=== PATIENT | female | born 1935 | race Caucasian/White ===

== ENCOUNTER 2017-08-10 10:15 | Outpatient (CLI) | payer MEDICARE, BC ==
--- NOTE | 2017-08-10 13:17 | ULT ---
RENAL ULTRASOUND: 08/10/2017 HISTORY: Chronic renal disease. TECHNIQUE: Multiple longitudinal and transverse images of the kidneys and bladder are obtained using a Multi-Her tz curvilinear transducer. FINDINGS: Real-time and color-flow images demonstrate both kidneys to be of normal contour, axis, and size. Th e right kidney measures 10.7 and the left kidney 9.6 cm from pole to pole. There is a large cyst in the upper to mid pole of the right kidney, measuring 4.5 x 3.4 x 4.3 cm, while there is a smaller cys t in the lower pole of the left kidney, measuring 1.0 x 1.2 x 1.0 cm. The right upper pole cyst or cystic lesion appears to have some area of wall calcification. This is not a simple cyst. The bladder is unremarkable. IMPRESSION: Complex cyst or cystic lesion in the upper pole of the right kidney. Correlate with CT with and without contrast for further characterization, if indicated. POS: [facility]
== END 2017-08-10 10:16 | disposition home or self-care (01) ==
LOC: ULT 10:15
PROVIDERS: ATTEND Internal Medicine Nephrology
DX: N18.3 Chronic kidney disease, stage 3 (moderate) (principal); N28.9 Disorder of kidney and ureter, unspecified
CPT/HCPCS: 76770

== ENCOUNTER 2017-11-16 10:20 | Outpatient (CLI) | payer MEDICARE, BC | END 2017-11-16 10:21 | disposition home or self-care (01) | LOC: BICMAMMO 10:20 | PROVIDERS: ATTEND Internal Medicine Hematology & Oncology | DX: Z12.31 Encounter for screening mammogram for malignant neoplasm of breast (principal); Z85.3 Personal history of malignant neoplasm of breast; Z80.3 Family history of malignant neoplasm of breast | CPT/HCPCS: 77063; 77067 ==

== ENCOUNTER 2018-06-20 10:56 | Outpatient (CLI) | payer MEDICARE, BC ==
--- NOTE | 2018-06-20 13:08 | ULT ---
RENAL ULTRASOUND: HISTORY: Followup of renal cyst. COMPARISON: 08/10/2017 examination. FINDINGS: Real-time imaging of the right and left kidneys were performed. The right kidney measures 10.1 cm an d the left kidney 10.4 cm in size. Cortical thinning of both kidneys is noted. Benign-appearing 1.4 cm left renal cyst is present. A more complex parapelvic cyst involving the right kidney is again d emonstrated. It is 3.7 cm in size. It appears similar to the previous exam. The bladder is incompletely extended at the time of this exam. IMPRESSION: Stable appearance of a complex right renal parapelvic cyst. POS: [facility]
== END 2018-06-20 10:57 | disposition home or self-care (01) ==
LOC: BICULT 10:56
PROVIDERS: ATTEND Internal Medicine Nephrology
DX: N28.1 Cyst of kidney, acquired (principal)
CPT/HCPCS: 76770

== ENCOUNTER 2018-08-11 12:07 | Outpatient (CLI) | payer MEDICARE, BC ==
[~2018-08-11 12:07] MED LIST: Gadobenate Dimeglumine 529 MG/1 ML (20ML VIAL) ONE
--- NOTE | 2018-08-11 17:16 | MRI ---
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 TECHNIQUE: Multiple sequences obtained in axial, sagittal, and coronal planes; pre and post IV injection of gado linium-based contrast agent: 6 mL, half dose, of Multihance (decreased GFR of 36). In addition to sta ndard whole brain sequences, additional thin slices were obtained through the paths of the VII crania l nerves. FINDINGS: There is a moderate to large left mastoid effusion involving the majority of the left mastoid air linda ls. A heavily T2 weighted thin slice axial sequence was not performed through the posterior fossa, an d therefore the morphology of the 7th-8th nerve complexes in the cisterns and IAC's, can not evaluate d in detail. However, there is no abnormal enhancement involving the cisternal, canalicular, geniculate, tympanic, or mastoid, segments of either the left or right facial nerve, with no evidence of neoplastic tumor mass. There is no abnormal enhancement or mass in the brainstem. There are mild to moderate chronic ischemic white matter changes in the west radiata and centrum se miovale, including periventricular white matter. There is a small old white matter lacunar infarction involving the right west radiata/centrum semi ovale junction. There is an old lacunar infarction involving the left caudate head and adjacent portion of anterior l eft basal ganglia. There are at least mild chronic ischemic white matter changes involving the nemo. There are multiple old small lacunar infarctions in the bilateral cerebellar hemispheres. There is no abnormal intra-axial enhancement or mass. No mass effect, midline shift or extra-axial fluid collect ion. There is diffuse brain parenchymal volume loss, not unusual for age 83 years. There is no obstru ctive hydrocephalus. No mass effect or midline shift. No extra-axial fluid collection. There is no abnormal enhancement or mass in the left malar and premaxillary soft tissues. No evidence of perineural spread of tumor in the pterygopalatine fossa or pterygomaxillary fissure. There is an approximately 1.5 x 1.5 x 1.5 cm solid mass with heterogeneous moderate enhancement in th e preauricular soft tissues, which is T1, T2 and FLAIR isointense to muscle. There is asymmetrically slightly increased enhancement in the superficial lobe of the left parotid gland compared to the righ t IMPRESSION: 1) A 1.5 cm enhancing neoplastic tumor mass in the left preauricular soft tissues. It may be originat ing from the far anterior superior tissues of the superficial lobe of the left gland. 2) slightly increased enhancement in the superficial lobe of the left parotid gland compared to the r ight, raising the possibility that branches of the left facial nerve could be affected by this. Recom mend otolaryngology consultation. 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 Code T JN R POS: [facility]
== END 2018-08-11 12:08 | disposition home or self-care (01) ==
LOC: BICMRI 12:07
PROVIDERS: ATTEND Ophthalmology
DX: G51.8 Other disorders of facial nerve (principal); H61.102 Unspecified noninfective disorders of pinna, left ear; Z86.73 Personal history of transient ischemic attack (TIA), and cerebral infarction without residual deficits
CPT/HCPCS: 70553; 82565; A9579

== ENCOUNTER 2018-10-26 10:32 | Day surgery (SDC) | payer MEDICARE, BC ==
[2018-10-25 14:03] VITALS: BMI 26.5
[2018-10-26 11:06] LABS: #Basophils 0.1 thou/uL (0.0-0.2); #Eosinphils 0.3 thou/uL (0.0-0.7); #Monocytes 0.4 thou/uL (0.11-0.59); %Eosinophils 5.3 % (0.0-10.0); %Lymphocytes 17.1 % (21.0-51.0); %Monocytes 7.3 % (0.0-10.0); %Neutrophils 69.3 % (42.0-75.0); Hemoglobin 13.4 g/dL (12.0-16.0); Mean Corpuscular HGB CONC 32.1 g/dL (32.0-36.0); Mean Corpuscular Hemoglobin 33.1 pg (27.0-31.0); Mean Platelet Volume 7.4 fL (7.4-10.4); Platelet Count 161 thou/uL (130-400); RBC Distribution Width 12.5 % (11.5-14.5); Red Blood Cell (RBC) Count 4.05 mill/uL (4.20-5.40); White Blood Cell (WBC) Count 5.8 thou/uL (4.8-10.8)
[2018-10-26 11:29] LABS: Anion Gap 13 mmol/L (10-20); BUN (Urea Nitrogen) 32 mg/dL (9.8-20.1); Calc. Creatinine Clearance 32 mL/min (70-130); Calcium 10.7 mg/dL (7.8-10.44); Carbon Dioxide 26 mmol/L (23-31); Chloride 103 mmol/L (98-107); Estimated GFR-MDRD 38; Glucose 88 mg/dL (83-110); Potassium 4.4 mmol/L (3.5-5.1); Sodium 138 mmol/L (136-145)
[2018-10-26] MEDS ORDERED: Bacitracin Zinc Ointment 30 gm TUBE ONE (11:31)
[2018-10-26] MEDS ORDERED: Lidocaine 1% w/Epinephrine 1:100K 20 ML VIAL ONE (11:31)
[2018-10-26] MEDS ORDERED: Fentanyl 100 MCG/2 ML VIAL ONE (11:46)
[2018-10-26] MEDS ORDERED: Hydrocodone-Acetamin 15 ML UDCUP ONE (14:55)
[2018-10-26] MEDS ORDERED: Ondansetron PF 4 MG/2 ML Vial ONE (15:01)
[2018-10-26] MEDS ORDERED: Lidocaine 1% PF 5 ML VIAL ONE (15:01)
[2018-10-26] MEDS ORDERED: ePHEDrine 50 MG/ML VIAL ONE (15:01)
[2018-10-26] MEDS ORDERED: Glycopyrrolate 0.2 MG/ML 5 ML SYRINGE ONE (15:01)
[2018-10-26] MEDS ORDERED: PROPOFOL 200 MG/20 ML VIAL ONE (15:01)
[2018-10-26] MEDS ORDERED: Rocuronium Bromide 10 MG/ML (10ML VIAL) ONE (15:01)
[2018-10-26] MEDS ORDERED: Morphine 2 MG/ML SYRINGE ONE (16:13)
--- NOTE | 2018-10-27 10:10 | OP ---
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 PROCEDURE PERFORMED: Total parotidectomy with facial nerve sacrifice. ESTIMATED BLOOD LOSS: 50 mL. COMPLICATIONS: None. ANESTHESIA: GETA. DESCRIPTION OF PROCEDURE: The patient was taken to the operating room and placed supine on the table. General endotracheal anesthesia was obtained by the anesthesia staff. Tube was secured in the right lower lip. The shoulder roll was placed and the head was gently tilted, exposing the left parotid. Following this, 8 mL of 1% lidocaine with 1:100,000 epinephrine was injected into the anticipated incision, which would outline her previous left parotidectomy incision. Following this, incision was made using a 15 blade through skin, subcutaneous tissue. Fat up, fat down level was obtained as the skin was elevated over the parotid gland. Following this, inferiorly, the remnant of the parotid gland and scar area was from the sternocleidomastoid. Following this, dissection was carried down the tragal cartilage until the entire remnant of the superficial lobe scarring and deep lobe was transected. This included the main branch of the facial nerve at the level of the mastoid bone. Following this, the gland was then rotated anteriorly and dissection was carried off the deep facial muscles until the entire gland was removed. Within the gland, there was noted to be a 1-1/2 cm firm area. They appeared to have clear margins. The wound was then irrigated and the deep subcuticular layer was closed using Monocryl stitches and the skin was closed using Prolene stitches. A drain was placed. The patient tolerated the procedure well. Job ID: [id number]
== END 2018-10-26 17:11 | disposition home or self-care (01) ==
LOC: SDC 10:32
PROVIDERS: ATTEND Otolaryngology Plastic Surgery within the Head & Neck
PROC: 0CTC0ZZ Resection of Left Parotid Duct, Open Approach (ICD-10-PCS; principal; 2018-10-26)
PROC: 00BM0ZZ Excision of Facial Nerve, Open Approach (ICD-10-PCS; 2018-10-26)
DX: C07 Malignant neoplasm of parotid gland (principal); E78.00 Pure hypercholesterolemia, unspecified; I10 Essential (primary) hypertension; Z92.21 Personal history of antineoplastic chemotherapy; Z92.3 Personal history of irradiation; Z85.3 Personal history of malignant neoplasm of breast; Z86.718 Personal history of other venous thrombosis and embolism; Z79.82 Long term (current) use of aspirin; Z79.899 Other long term (current) drug therapy; Z91.040 Latex allergy status; Z91.048 Other nonmedicinal substance allergy status; Z98.890 Other specified postprocedural states
CPT/HCPCS: 36415; 80048; 85025; 88307; 93005; 93010; J2001; J2270; J2405; J2704; J3010; J3490

== ENCOUNTER 2018-11-22 12:47 | Outpatient (CLI) | payer MEDICARE, BC ==
--- NOTE | 2018-11-28 13:22 | MMO ---
Bilateral MAMMO Bilat Screen [facility]. CLINICAL HISTORY: Patient is 83 years old and is seen for screening. The patient has the following family history of breast cancer: sister, at age 40. The patient has a history of left Cyst Aspiration in 1986 - benign, left Excisional Biopsy in 2003 - benign and right Mastectomy in 2003 - malignant - 1. VIEWS: The views performed were: bilateral craniocaudal with tomosynthesis and bilateral mediolateral oblique with tomosynthesis. FILMS COMPARED: The present examination has been compared to prior imaging studies performed at [facility] on 12/06/2000, 12/14/2001, 12/18/2002, 12/25/2003, 12/27/2003, 11/17/2004, 07/08/2005, 12/17/2005, 09/14/2006, 10/04/2009, 10/06/2010, 09/10/2011, 09/12/2012, 10/05/2013, 11/07/2014, 11/11/2015, 11/12/2016 and 11/16/2017. MAMMOGRAM FINDINGS: The breast is heterogeneously dense, which could obscure a lesion on mammography. Finding 1: There are vascular calcifications seen in the left breast. Finding 2: There are benign appearing calcifications seen in the left breast. There are no suspicious masses, calcifications or areas of architectural distortion. IMPRESSION: THERE IS NO MAMMOGRAPHIC EVIDENCE OF MALIGNANCY. A ROUTINE FOLLOW-UP MAMMOGRAM IN 1 YEAR IS RECOMMENDED. THE RESULTS OF THIS EXAM WERE SENT TO THE PATIENT. ACR BI-RADS Category 2 - Benign finding MAMMOGRAPHY NOTE: 1. A negative mammogram report should not delay a biopsy if a dominant of clinically suspicious mass is present. 2. Approximately 10% to 15% of breast cancers are not detected by mammography. 3. Adenosis and dense breasts may obscure an underlying neoplasm.
== END 2018-11-22 12:48 | disposition home or self-care (01) ==
LOC: BICMAMMO 12:47
PROVIDERS: ATTEND Internal Medicine Hematology & Oncology
DX: Z12.31 Encounter for screening mammogram for malignant neoplasm of breast (principal); Z80.3 Family history of malignant neoplasm of breast; Z98.890 Other specified postprocedural states; Z90.11 Acquired absence of right breast and nipple
CPT/HCPCS: 77063; 77067

== ENCOUNTER 2018-12-02 08:24 | Outpatient (CLI) | payer MEDICARE, BC ==
--- NOTE | 2018-12-02 12:03 | PET ---
FRadionucleotide PET scan with CT attenuation correction HISTORY: Recurrent left parotid mucosal epidermoid neoplasm. Restaging. FINDINGS: Physiologic uptake of radiotracer is present throughout the enteric system and along each u rinary tract. Muscular uptake is noted along the left teres minor muscle without a focal mass. Increased activity associated with the left parotid region shows a maximum SUV of 3.9, slightly above the level where the mass was on the prior MRI exam. It is not a masslike focus of uptake, but rather a diffuse area of slightly increased activity. No other areas of increased radiotracer uptake are apparent. Nondiagnostic CT attenuation correction images show calcification within the arterial structures. Kevin cified granulomata within the lungs, mediastinum, and spleen. Degenerative changes lumbar spine. Righ t breast is surgically absent. Large right renal cyst is apparent with resultant defect on the PET im ages. IMPRESSION: Hypermetabolic activity associated with the left parotid bed is favored to be related to reactive post radiation changes. A hypermetabolic mass is no longer visible. No evidence of distant metastasis. Atherosclerosis.
== END 2018-12-02 08:25 | disposition home or self-care (01) ==
LOC: PET 08:24
PROVIDERS: ATTEND Radiology Radiation Oncology
DX: C07 Malignant neoplasm of parotid gland (principal); I70.90 Unspecified atherosclerosis; Z92.3 Personal history of irradiation
CPT/HCPCS: 78815; A9552

== ENCOUNTER 2019-09-12 12:21 | Outpatient (CLI) | payer MEDICARE, BC ==
--- NOTE | 2019-09-12 14:20 | MRI ---
MRI of the neck with and without contrast: 09/12/2019 HISTORY: Restaging of parotid neoplasm on the left TECHNIQUE: The planar multisequence MR imaging of the neck is obtained with and without contrast FINDINGS: The patient appears status post resection of the parotid gland on the left. There is a left mastoid effusion. Imaged portions of the paranasal sinuses and the right mastoid air cells appear grossly unremarkable. Midline sternotomy wires are present. The region of the submandibular glands appears grossly unremarkable bilaterally. The parotid gland on the right appears grossly unremarkable. There is a mass posterior to the mandible on the left just inferior to the level of the left mandibul ar condyle anterior to the inferior aspect of the left mastoid air cells, just inferior to the external auditory canal on the left. This mass appears new when compared to a brain MRI performed 08/11/2018. This lesion is slightly T2 hyperintense, demonstrates precontrast T1 isointensity and demonstrates postcontrast enhancement. This lesion measures approximately 1.3 x 1.8 x 1.9 cm. Given t he patient's history, this is suspicious for recurrent left parotid neoplasm. Motion artifact limits detailed assessment of the mucosal structures of the neck as well as of the vascular structure s. No discrete lymphadenopathy is noted. IMPRESSION: Left-sided mass posterior to the mandible as detailed above, suspicious for recurrent par otid neoplasm. Results called to Dr. Reddy at 2:10 PM 09/12/2019.
== END 2019-09-12 12:22 | disposition home or self-care (01) ==
LOC: SCSMRI 12:21
PROVIDERS: ATTEND Radiology Radiation Oncology
DX: C07 Malignant neoplasm of parotid gland (principal)
CPT/HCPCS: 70543; 82565

== ENCOUNTER 2019-09-27 07:46 | Day surgery (SDC) | payer MEDICARE, BC ==
[2019-09-26 12:51] VITALS: BMI 27.4
[2019-09-27 08:53] LABS: Hemoglobin 12.2 g/dL (12.0-16.0)
[2019-09-27 09:05] LABS: Anion Gap 14 mmol/L (10-20); BUN (Urea Nitrogen) 20 mg/dL (9.8-20.1); Calc. Creatinine Clearance 35 mL/min (70-130); Calcium 10.2 mg/dL (7.8-10.44); Carbon Dioxide 28 mmol/L (23-31); Chloride 105 mmol/L (98-107); Estimated GFR-MDRD 41; Glucose 102 mg/dL (83-110); Potassium 4.8 mmol/L (3.5-5.1); Sodium 142 mmol/L (136-145)
[2019-09-27] MEDS ORDERED: Fentanyl 100 MCG/2 ML VIAL ONE (10:07)
[2019-09-27] MEDS ORDERED: Bacitracin Zinc Ointment 30 gm TUBE ONE (10:20)
[2019-09-27] MEDS ORDERED: Lidocaine 1% w/Epinephrine 1:100K 20 ML VIAL ONE (10:20)
[2019-09-27] MEDS ORDERED: Lidocaine 1% PF 5 ML VIAL ONE (11:53)
[2019-09-27] MEDS ORDERED: PROPOFOL 200 MG/20 ML VIAL ONE (11:53)
[2019-09-27] MEDS ORDERED: Dexamethasone 20 MG/5 ML VIAL ONE (11:53)
[2019-09-27] MEDS ORDERED: Rocuronium Bromide 10 MG/ML (10ML VIAL) ONE (11:53)
[2019-09-27] MEDS ORDERED: Glycopyrrolate 0.2 MG/ML 5 ML SYRINGE ONE (11:53)
[2019-09-27] MEDS ORDERED: ePHEDrine/0.9% NaCl/PF SYRINGE 50 mg/10 ml ONE (11:53)
[2019-09-27] MEDS ORDERED: Ondansetron PF 4 MG/2 ML Vial ONE (11:53)
--- NOTE | 2019-09-28 08:33 | OP ---
DATE OF PROCEDURE: 09/27/2019 PREOPERATIVE DIAGNOSES: 1. Left parotid mass. 2. History of malignant neoplasm of left parotid. POSTOPERATIVE DIAGNOSES: 1. Left parotid mass. 2. History of malignant neoplasm of left parotid. PROCEDURE PERFORMED: Left completion parotidectomy. ESTIMATED BLOOD LOSS: 50 mL. COMPLICATIONS: None. ANESTHESIA: GETA. DESCRIPTION OF PROCEDURE: The patient was taken to the operating room and placed supine on the operating room table. General endotracheal anesthesia was obtained by the Anesthesia Staff. Tube was secured in the right lower lip. Shoulder roll was placed. The patient was prepped and draped for standard surgical procedure. The previous incision was injected 5 mL of 1% lidocaine with 1:100,000 epinephrine. Following this, 15 blade was used to incise the skin and elevate a skin flap overlying the left cheek area. There was significant scarring remaining. The TMJ capsule was identified and showed no evidence of disease in this area. Medially, inferior to the ear canal, posterior and medial to the mandible, where the facial nerve enters the mastoid cavity was a necrotic area. This appeared to be arising from a tumor that had penetrated the facial nerve. The facial nerve had been previously resected and the patient also had previous radiation therapy. The nerve was from the internal maxillary artery and its branches and as it entered the skull base, was suture ligated and any residual nerve in this area had Bovie electrocautery. There was involvement of the inferior cartilages of the conchal bowl and skin, which was removed using the Bovie electrocautery. Following this, the wound was irrigated. There was no further resection could be performed without further resecting the mastoid air cells. The patient was then irrigated and wound was closed. The patient tolerated the procedure well. Job ID: [id number]
== END 2019-09-27 14:55 | disposition home or self-care (01) ==
LOC: SDC 07:46
PROVIDERS: ATTEND Otolaryngology Plastic Surgery within the Head & Neck
PROC: 0GTR0ZZ Resection of Parathyroid Gland, Open Approach (ICD-10-PCS; principal; 2019-09-27)
DX: C07 Malignant neoplasm of parotid gland (principal); G51.0 Bell's palsy; Z91.040 Latex allergy status; Z91.048 Other nonmedicinal substance allergy status; Z79.82 Long term (current) use of aspirin; Z79.899 Other long term (current) drug therapy
CPT/HCPCS: 80048; 85014; 85018; 88307; 93005; 93010; J1100; J2001; J2405; J2704; J3010

== ENCOUNTER 2020-01-01 05:59 | Day surgery (SDC) | payer MEDICARE, BC ==
[2019-12-29 09:43] VITALS: BMI 27.4
[2020-01-01] MEDS ORDERED: Fentanyl 100 MCG/2 ML VIAL ONE (06:43)
[2020-01-01] MEDS ORDERED: Midazolam HCl 2 mg/2 ml Vial ONE (06:43)
[2020-01-01] MEDS ORDERED: Bupivacaine 0.25% HCL 30 ML VIAL ONE (06:49)
[2020-01-01] MEDS ORDERED: Lidocaine 1% w/Epinephrine 1:100K 20 ML VIAL ONE (06:49)
[2020-01-01] MEDS ORDERED: EPINEPHrine 1 MG/ML AMP ONE (06:56)
[2020-01-01] MEDS ORDERED: Bacitracin Zinc Ointment 30 gm TUBE ONE (06:56)
[2020-01-01 07:16] LABS: Hemoglobin 12.5 g/dL (12.0-16.0)
[2020-01-01 07:21] LABS: Anion Gap 13 mmol/L (10-20); BUN (Urea Nitrogen) 30 mg/dL (9.8-20.1); Calc. Creatinine Clearance 32 mL/min (70-130); Calcium 9.9 mg/dL (7.8-10.44); Carbon Dioxide 28 mmol/L (23-31); Chloride 103 mmol/L (98-107); Estimated GFR-MDRD 37; Glucose 93 mg/dL (83-110); Potassium 3.9 mmol/L (3.5-5.1); Sodium 140 mmol/L (136-145)
[2020-01-01] MEDS ORDERED: Glycopyrrolate 0.2 MG/ML 5 ML SYRINGE ONE (10:11)
[2020-01-01] MEDS ORDERED: Lidocaine 1% PF 5 ML VIAL ONE (10:11)
[2020-01-01] MEDS ORDERED: PROPOFOL 200 MG/20 ML VIAL ONE (10:11)
[2020-01-01] MEDS ORDERED: EPHEDRINE 25 MG/5 ML SYRINGE ONE (10:11)
[2020-01-01] MEDS ORDERED: Rocuronium Bromide 10 MG/ML (10ML VIAL) ONE ×2 (10:11)
[2020-01-01] MEDS ORDERED: Succinylcholine Chloride 20 MG/ML 10 ml SYRINGE FS ONE (10:11)
[2020-01-01] MEDS ORDERED: Ondansetron PF 4 MG/2 ML Vial ONE (10:11)
[2020-01-01] MEDS ORDERED: hydrALAZINE 20 MG/ML VIAL ONE (11:19)
--- NOTE | 2020-01-01 12:58 | OP ---
DATE OF PROCEDURE: 01/01/2020 PREOPERATIVE DIAGNOSIS: Left parotid mucoepidermoid tumor. PROCEDURE PERFORMED: 1. Left lateral temporal bone resection. 2. Facial nerve decompression. 3. Microscopic surgical procedure. POSTOPERATIVE DIAGNOSIS: Left parotid mucoepidermoid tumor. ANESTHESIA: General. COMPLICATIONS: None. ESTIMATED BLOOD LOSS: 5 mL. SPECIMEN: Stylomastoid foramen en bloc with facial nerve attached. Frozen section of the facial nerve. Geniculate showed no evidence of tumor. ASSISTANTS: None. DISPOSITION: Stable to recovery room. PROCEDURE IN DETAIL: 1. Left lateral temporal bone resection: After informed consent was obtained, the patient was taken to operating room and placed in supine position. General endotracheal anesthetic was administered. Table was rotated to 180 degrees. Left ear was injected postauricularly with 0.25% Marcaine with epinephrine. With the left ear injected, draped and prepped in sterile fashion, 10-blade was used to make a postauricular incision, carried down and reflected ear forward. Pericranial flap was elevated based anteriorly. Retractor was placed. Cortical mastoid was formed, skeletonized, and identified the posterior fossa dura and sigmoid as it went down into the skull base, dissected up, and the jugular bulb was well inferior and medial. This allowed total resection of an en bloc tissue with a good 4 cm of soft tissue at the stylomastoid foramen. The facial nerve was identified and this portion dissected and opened the facial recess. Malleus and incus all moved well. Middle ear space was clear. With the middle ear space being clear and all ossicles mobile and the nerve reconstruction possible, this nerve was sectioned just anterior to the COG. Facial nerve was dissected out of the fallopian canal at this point and retrofacial dissection using chisels and drills allowed to take it en bloc, pear-shaped tissue block of resection. The specimen was labeled with a short suture at the stylomastoid foramen along suture just adjacent to the facial nerve trauma. 2. With the basic mastoid portion completed prior to en bloc tumor resection, the facial nerve was identified and opened the facial recess with valdemar burs. The facial nerve was clearly identified in the fallopian canal, decompressed out of the fallopian canal for identification, section, and removal. 3. Microscopic surgical procedure: Throughout the entirety of operation, microscope was integral part of procedure using 2 to 14 and high illumination. Wound was irrigated with copious amounts of saline, closed in layers and Dermabond for the skin. Inspection of the ear canal showed it to have debris, which was removed with the forceps. The TM was intact. The patient tolerated the procedure well, was turned over to Anesthesia in stable condition. Job ID: [id number]
--- NOTE | 2020-01-01 16:59 | EKG ---
Test Reason : PREOP Blood Pressure : / mmHG Vent. Rate : 066 BPM Atrial Rate : 066 BPM P-R Int : 208 ms QRS Dur : 106 ms QT Int : 460 ms P-R-T Axes : 070 -12 084 degrees QTc Int : 482 ms Sinus rhythm with occasional Premature ventricular complexes Incomplete left bundle branch block Minimal voltage criteria for LVH, may be normal variant Borderline ECG When compared with ECG of 27-SEP-2019 08:56, Premature ventricular complexes are now Present Confirmed by DR. García NIELSEN ([id number]) on 01/01/2020 4:59:05 PM Referred By: NAE Confirmed By:DR. García NIELSEN
== END 2020-01-01 12:45 | disposition home or self-care (01) ==
LOC: SDC 05:59
PROVIDERS: ATTEND Otolaryngology Otology & Neurotology
PROC: 0NB60ZZ Excision of Left Temporal Bone, Open Approach (ICD-10-PCS; principal; 2020-01-01)
PROC: 00N Central Nervous System and Cranial Nerves, Release (ICD-10-PCS; 2020-01-01)
DX: C41.0 Malignant neoplasm of bones of skull and face (principal); C07 Malignant neoplasm of parotid gland; G51.0 Bell's palsy; I10 Essential (primary) hypertension; E78.5 Hyperlipidemia, unspecified; I35.0 Nonrheumatic aortic (valve) stenosis; G43.909 Migraine, unspecified, not intractable, without status migrainosus; M19.90 Unspecified osteoarthritis, unspecified site; Z85.3 Personal history of malignant neoplasm of breast; Z86.718 Personal history of other venous thrombosis and embolism; Z79.82 Long term (current) use of aspirin; Z79.899 Other long term (current) drug therapy; Z91.040 Latex allergy status; Z91.048 Other nonmedicinal substance allergy status
CPT/HCPCS: 80048; 85014; 85018; 88305; 88307; 88331; 93005; 93010; J0171; J0360; J2001; J2250; J2405; J2704; J3010; S0020

== ENCOUNTER 2021-08-19 17:59 | Observation (INO) | payer MEDICARE, BC ==
[2021-08-19 18:22] LABS: #Basophils 0.1 thou/uL (0.0-0.2); #Eosinphils 0.1 thou/uL (0.0-0.7); #Lymphocytes 1.1 thou/uL (1.20-3.40); #Monocytes 0.7 thou/uL (0.11-0.59); #Neutrophils 4.7 thou/uL (1.40-6.50); %Basophils 1.3 % (0.0-1.0); %Eosinophils 1.7 % (0.0-10.0); %Lymphocytes 16.1 % (21.0-51.0); %Monocytes 10.2 % (0.0-10.0); %Neutrophils 70.7 % (42.0-75.0); Hemoglobin 12.6 g/dL (12.0-16.0); Mean Corpuscular HGB CONC 32.4 g/dL (32.0-36.0); Mean Corpuscular Hemoglobin 31.7 pg (27.0-31.0); Mean Corpuscular Volume 97.9 fL (78.0-98.0); Mean Platelet Volume 7.2 fL (7.4-10.4); Platelet Count 232 thou/uL (130-400); RBC Distribution Width 14.2 % (11.5-14.5); Red Blood Cell (RBC) Count 3.96 mill/uL (4.20-5.40); White Blood Cell (WBC) Count 6.6 thou/uL (4.8-10.8)
[2021-08-19 18:29] LABS: INR-International Normal Ratio 0.9; PTT 30.9 sec (22.9-36.1); Prothrombin Time 12.4 sec (12.0-14.7)
[2021-08-19 18:46] LABS: ALT (SGPT) 41 U/L (8-55); AST (SGOT) 44 U/L (5-34); Alkaline Phosphatase 76 U/L (40-110); Anion Gap 15 mmol/L (10-20); BUN (Urea Nitrogen) 21 mg/dL (9.8-20.1); Bilirubin, Total 0.9 mg/dL (0.2-1.2); Calc. Creatinine Clearance 0 mL/min (70-130); Calcium 10.4 mg/dL (7.8-10.44); Carbon Dioxide 27 mmol/L (23-31); Chloride 94 mmol/L (98-107); Globulin 3.9 g/dL (2.4-3.5); Glucose 102 mg/dL (83-110); Potassium 4.5 mmol/L (3.5-5.1); Protein, Total 7.9 g/dL (5.8-8.1); Sodium 131 mmol/L (136-145)
[2021-08-19] MEDS ORDERED: Metoclopramide HCl 10 MG/2 ML VIAL ONE (19:06)
[2021-08-19] MEDS ORDERED: diphenhydrAMINE 50 MG/ML VIAL ONE (19:06)
[2021-08-19 19:46] LABS: CKMB 3.2 ng/mL (0-6.6)
[2021-08-19] MEDS ORDERED: Aspirin 325 MG TAB ONE (19:52)
[2021-08-19 21:53] LABS: SARS-CoV-2 NAA Rapid Test Not Detected (NotDetected)
[2021-08-19] MEDS ORDERED: Acetaminophen 325 MG TAB PO PRN (23:41)
[2021-08-19] MEDS ORDERED: HYDROcodone/Acetaminophen 5/325 mg Tablet PO PRN (23:41)
[2021-08-19] MEDS ORDERED: Zolpidem Tartrate 5 MG TAB PO PRN (23:41)
[2021-08-19] MEDS ORDERED: Senokot S 8.6-50 MG TAB PO PRN (23:41)
[2021-08-19] MEDS ORDERED: Ondansetron PF 4 MG/2 ML Vial IVP PRN (23:41)
[2021-08-19] MEDS ORDERED: Furosemide 40 MG/4 ML VIAL SLOW IVP SCH (23:45)
[2021-08-20 02:59] VITALS: BMI 24.0
[2021-08-20] MEDS: Furosemide 40 MG/4 ML VIAL SLOW IVP SCH ×2 (05:39→16:12)
[2021-08-20] MEDS ORDERED: Levothyroxine Sodium 88 MCG TAB PO SCH (06:00)
[2021-08-20 06:14] LABS: #Basophils 0.1 thou/uL (0.0-0.2); #Eosinphils 0.1 thou/uL (0.0-0.7); #Lymphocytes 0.8 thou/uL (1.20-3.40); #Monocytes 0.5 thou/uL (0.11-0.59); %Basophils 1.1 % (0.0-1.0); %Eosinophils 2.1 % (0.0-10.0); %Lymphocytes 18.2 % (21.0-51.0); %Monocytes 12.1 % (0.0-10.0); %Neutrophils 66.4 % (42.0-75.0); Hemoglobin 11.5 g/dL (12.0-16.0); Mean Corpuscular HGB CONC 33.2 g/dL (32.0-36.0); Mean Corpuscular Hemoglobin 32.4 pg (27.0-31.0); Mean Corpuscular Volume 97.6 fL (78.0-98.0); Mean Platelet Volume 6.6 fL (7.4-10.4); Platelet Count 202 thou/uL (130-400); RBC Distribution Width 13.9 % (11.5-14.5); Red Blood Cell (RBC) Count 3.55 mill/uL (4.20-5.40); White Blood Cell (WBC) Count 4.5 thou/uL (4.8-10.8)
[2021-08-20 06:38] LABS: ALT (SGPT) 33 U/L (8-55); AST (SGOT) 30 U/L (5-34); Albumin 3.4 g/dL (3.4-4.8); Alkaline Phosphatase 62 U/L (40-110); Anion Gap 14 mmol/L (10-20); BUN (Urea Nitrogen) 19 mg/dL (9.8-20.1); Bilirubin, Total 0.8 mg/dL (0.2-1.2); Calc. Creatinine Clearance 33 mL/min (70-130); Calcium 9.7 mg/dL (7.8-10.44); Carbon Dioxide 28 mmol/L (23-31); Chloride 95 mmol/L (98-107); Glucose 86 mg/dL (83-110); Potassium 3.8 mmol/L (3.5-5.1); Protein, Total 6.4 g/dL (5.8-8.1); Sodium 133 mmol/L (136-145)
[2021-08-20 06:41] LABS: Troponin I 0.064 ng/mL (< 0.028)
[2021-08-20] MEDS ORDERED: Aspirin 81 mg Enteric Coated Tablet PO SCH (09:00)
[2021-08-20] MEDS ORDERED: Enoxaparin Sodium 30 MG/0.3 ML SYRINGE SC SCH (09:00)
[2021-08-20] MEDS ORDERED: Famotidine 20 MG TAB PO SCH (09:00)
[2021-08-20] MEDS ORDERED: Amlodipine 5 MG TAB PO SCH (09:00)
[2021-08-20] MEDS ORDERED: Fish Oil 1,000 MG CAP PO SCH (09:00)
[2021-08-20] MEDS ORDERED: Magnevist 469MG/ML 20 ML VIAL ONE (11:39)
[2021-08-20 15:39] VITALS: BP 128/77; TEMP 97.9
[2021-08-20] MEDS ORDERED: Nebivolol HCl 5 MG TAB PO SCH (21:00)
[2021-08-20] MEDS ORDERED: Atorvastatin Calcium 40 MG TAB PO SCH (21:00)
[2021-08-20] MEDS ORDERED: Cholecalciferol 1,000 UNITS (25 MCG) TAB PO SCH (21:00)
[2021-08-20] MEDS ORDERED: Cyanocobalamin (Vitamin B-12) 1,000 MCG TAB PO SCH (21:00)
== END 2021-08-20 16:40 | disposition home or self-care (01) ==
LOC: ERS 17:59 → ERHOLD 19:55 → NEURO 08-20 01:22
PROVIDERS: ADMIT Internal Medicine; ATTEND Internal Medicine
DX: I16.1 Hypertensive emergency (principal); R51.9 Headache, unspecified; E78.5 Hyperlipidemia, unspecified; E87.70 Fluid overload, unspecified; I12.9 Hypertensive chronic kidney disease with stage 1 through stage 4 chronic kidney disease, or unspecified chronic kidney disease; N18.30 Chronic kidney disease, stage 3 unspecified; N17.9 Acute kidney failure, unspecified; G97.49 Accidental puncture and laceration of other nervous system organ or structure during other procedure; Z79.82 Long term (current) use of aspirin; Z79.899 Other long term (current) drug therapy; Z91.040 Latex allergy status; Z91.048 Other nonmedicinal substance allergy status; Z98.890 Other specified postprocedural states; Z20.822 Contact with and (suspected) exposure to COVID-19; Y83.9 Surgical procedure, unspecified as the cause of abnormal reaction of the patient, or of later complication, without mention of misadventure at the time of the procedure
CPT/HCPCS: 70450; 70553; 71045; 80053; 82553; 82962; 84484 ×2; 85025; 85610; 85730; 93005; 94760; 96372; 96374; 96375 ×2; 99285; G0378 ×3; U0002; 36415; 36416; 84443; A9579; J1200; J1650; J1940; J2765

== ENCOUNTER 2021-08-27 15:18 | Outpatient (CLI) | payer MEDICARE, BC | END 2021-08-27 15:19 | disposition home or self-care (01) | LOC: SCSRAD 15:18 | PROVIDERS: ATTEND Family Medicine | DX: R07.81 Pleurodynia (principal) ==

== ENCOUNTER 2021-12-22 17:42 | Inpatient (IN) | payer MEDICARE, BC ==
[2021-12-22 21:56] VITALS: BMI 21.8
[2021-12-22] MEDS ORDERED: Ondansetron ODT 4 MG TAB PO PRN (22:32)
[2021-12-22] MEDS ORDERED: Acetaminophen 325 MG TAB PO PRN (22:32)
[2021-12-23] MEDS: Levothyroxine Sodium 88 MCG TAB PO SCH (05:09)
[2021-12-23 05:53] LABS: #Basophils 0.1 thou/uL (0.0-0.2); #Eosinphils 0.3 thou/uL (0.0-0.7); #Lymphocytes 0.8 thou/uL (1.20-3.40); #Monocytes 0.5 thou/uL (0.11-0.59); #Neutrophils 3.5 thou/uL (1.40-6.50); %Basophils 1.3 % (0.0-1.0); %Eosinophils 4.9 % (0.0-10.0); %Lymphocytes 16.3 % (21.0-51.0); %Monocytes 9.6 % (0.0-10.0); %Neutrophils 67.9 % (42.0-75.0); Hemoglobin 10.9 g/dL (12.0-16.0); Mean Corpuscular Hemoglobin 33.9 pg (27.0-31.0); Mean Platelet Volume 7.1 fL (7.4-10.4); Platelet Count 191 thou/uL (130-400); RBC Distribution Width 13.7 % (11.5-14.5); Red Blood Cell (RBC) Count 3.21 mill/uL (4.20-5.40); White Blood Cell (WBC) Count 5.1 thou/uL (4.8-10.8)
[2021-12-23 06:17] LABS: Anion Gap 16 mmol/L (10-20); BUN (Urea Nitrogen) 37 mg/dL (9.8-20.1); Calc. Creatinine Clearance 26 mL/min (70-130); Carbon Dioxide 32 mmol/L (23-31); Chloride 97 mmol/L (98-107); Glucose 84 mg/dL (83-110); Magnesium 1.7 mg/dL (1.6-2.6); Potassium 3.7 mmol/L (3.5-5.1); Sodium 141 mmol/L (136-145)
[2021-12-23] MEDS ORDERED: Furosemide 40 MG TAB PO SCH (09:00)
[2021-12-23] MEDS ORDERED: Nebivolol HCl 5 MG TAB PO SCH (09:00)
[2021-12-23] MEDS: Amlodipine 5 MG TAB PO SCH (10:10)
[2021-12-23] MEDS: Fludrocortisone Acetate 0.1 MG TAB PO SCH (10:10)
[2021-12-23] MEDS: Multivit, Therapeutic 1 TAB PO SCH (10:10)
[2021-12-23] MEDS: Nebivolol HCl 5 MG TAB PO SCH (10:11)
[2021-12-23] MEDS: Metamucil PACK PO SCH ×2 (10:11→20:30)
[2021-12-23] MEDS: Furosemide 40 MG/4 ML VIAL SLOW IVP SCH (10:11)
[2021-12-23 12:53] LABS: SARS-CoV-2 PCR by NAA Not Detected (NotDetected)
[2021-12-23] MEDS ORDERED: Melatonin 3 MG TAB PO PRN (18:48)
[2021-12-23] MEDS: Cyanocobalamin (Vitamin B-12) 1,000 MCG TAB PO SCH (20:28)
[2021-12-23] MEDS: Atorvastatin Calcium 40 MG TAB PO SCH (20:29)
[2021-12-23] MEDS: Cholecalciferol 1,000 UNITS (25 MCG) TAB PO SCH (20:29)
[2021-12-24 04:57] LABS: #Eosinphils 0.2 thou/uL (0.0-0.7); #Lymphocytes 1.1 thou/uL (1.20-3.40); #Monocytes 0.6 thou/uL (0.11-0.59); %Basophils 0.8 % (0.0-1.0); %Eosinophils 3.7 % (0.0-10.0); %Lymphocytes 18.1 % (21.0-51.0); %Monocytes 10.4 % (0.0-10.0); Hemoglobin 11.1 g/dL (12.0-16.0); Mean Corpuscular Hemoglobin 34.1 pg (27.0-31.0); Platelet Count 193 thou/uL (130-400); RBC Distribution Width 13.7 % (11.5-14.5); Red Blood Cell (RBC) Count 3.26 mill/uL (4.20-5.40)
[2021-12-24 05:15] LABS: Anion Gap 15 mmol/L (10-20); BUN (Urea Nitrogen) 39 mg/dL (9.8-20.1); Calc. Creatinine Clearance 24 mL/min (70-130); Calcium 10.1 mg/dL (7.8-10.44); Carbon Dioxide 31 mmol/L (23-31); Chloride 97 mmol/L (98-107); Glucose 97 mg/dL (83-110); Potassium 3.5 mmol/L (3.5-5.1); Sodium 139 mmol/L (136-145)
[2021-12-24] MEDS: Levothyroxine Sodium 88 MCG TAB PO SCH (05:54)
[2021-12-24] MEDS: Nebivolol HCl 5 MG TAB PO SCH (08:22)
[2021-12-24] MEDS: Multivit, Therapeutic 1 TAB PO SCH (08:23)
[2021-12-24] MEDS: Amlodipine 5 MG TAB PO SCH (08:23)
[2021-12-24] MEDS: Furosemide 40 MG/4 ML VIAL SLOW IVP SCH (08:23)
[2021-12-24] MEDS: Fludrocortisone Acetate 0.1 MG TAB PO SCH (08:23)
[2021-12-24] MEDS: Metamucil PACK PO SCH ×2 (08:23→19:52)
[2021-12-24] MEDS ORDERED: Lidocaine 1% w/Epinephrine 1:100K 20 ML VIAL NERVE BLCK SCH (14:15)
[2021-12-24 15:41] LABS: Pleural Fluid, Protein 4.5 g/dL
[2021-12-24 15:52] LABS: RBC Count-Automated (BF) 2031 /cu.mm; WBC/Nucleated-Auto (BF) 997 /cu.mm
[2021-12-24 16:01] LABS: BF Color Yellow; Body Fluid Source Pleural Fluid; Clarity Hazy (Clear); Tube # EDTA
[2021-12-24 16:16] LABS: BF Segmented Neutrophils 19 %; Cell Count Non Hematic 30 %; Eosinophils 3 %; Lymphocytes 46 %
[2021-12-24] MEDS ORDERED: HYDROcodone/Acetaminophen 5/325 mg Tablet PO PRN (20:42)
[2021-12-24] MEDS: Atorvastatin Calcium 40 MG TAB PO SCH (21:01)
[2021-12-24] MEDS: Cholecalciferol 1,000 UNITS (25 MCG) TAB PO SCH (21:01)
[2021-12-24] MEDS: Cyanocobalamin (Vitamin B-12) 1,000 MCG TAB PO SCH (21:02)
[2021-12-25] MEDS: Levothyroxine Sodium 88 MCG TAB PO SCH (06:00)
[2021-12-25] MEDS: Metamucil PACK PO SCH (08:04)
[2021-12-25] MEDS: Furosemide 40 MG/4 ML VIAL SLOW IVP SCH (08:04)
[2021-12-25] MEDS: Multivit, Therapeutic 1 TAB PO SCH (08:05)
[2021-12-25] MEDS: Amlodipine 5 MG TAB PO SCH (08:05)
[2021-12-25] MEDS: Fludrocortisone Acetate 0.1 MG TAB PO SCH (08:05)
[2021-12-25] MEDS: Nebivolol HCl 5 MG TAB PO SCH (08:06)
[2021-12-25 08:45] VITALS: BP 104/57; TEMP 97.8
== END 2021-12-25 09:32 | disposition home or self-care (01) | DRG 188 ==
LOC: MSONC 18:59 → OBSVTOIN 12-23 14:27
PROVIDERS: ADMIT Family Medicine; ATTEND Internal Medicine
PROC: 0W993ZX Drainage of Right Pleural Cavity, Percutaneous Approach, Diagnostic (ICD-10-PCS; principal; 2021-12-24)
DX: J90 Pleural effusion, not elsewhere classified (principal); Z20.822 Contact with and (suspected) exposure to COVID-19; Z66 Do not resuscitate; E03.9 Hypothyroidism, unspecified; E78.5 Hyperlipidemia, unspecified; N18.30 Chronic kidney disease, stage 3 unspecified; I12.9 Hypertensive chronic kidney disease with stage 1 through stage 4 chronic kidney disease, or unspecified chronic kidney disease; Z96.659 Presence of unspecified artificial knee joint; R91.1 Solitary pulmonary nodule; G47.33 Obstructive sleep apnea (adult) (pediatric); Z90.11 Acquired absence of right breast and nipple; I25.2 Old myocardial infarction; Z86.718 Personal history of other venous thrombosis and embolism; Z90.49 Acquired absence of other specified parts of digestive tract; Z98.42 Cataract extraction status, left eye; Z98.41 Cataract extraction status, right eye; Z95.2 Presence of prosthetic heart valve; Z90.89 Acquired absence of other organs; Z91.040 Latex allergy status; Z91.09 Other allergy status, other than to drugs and biological substances; Z79.899 Other long term (current) drug therapy; Z79.890 Hormone replacement therapy; Z80.3 Family history of malignant neoplasm of breast; Z85.89 Personal history of malignant neoplasm of other organs and systems; Z92.3 Personal history of irradiation; Z92.21 Personal history of antineoplastic chemotherapy
CPT/HCPCS: 36415; 71045; 80048; 80053; 82945; 83615; 83735; 83880; 84155; 84157; 84484; 85025; 85060; 87070; 87102; 87116; 87205; 87206; 88112; 88305; 89051; 93005; 93306; 93970; 96374; 96376; G0378; J1940; U0003; U0005

== ENCOUNTER 2022-01-13 08:47 | Outpatient (CLI) | payer MEDICARE, BC ==
[2022-01-13 09:40] LABS: Mean Corpuscular HGB CONC 31.6 g/dL (32.0-36.0); Mean Corpuscular Hemoglobin 33.1 pg (27.0-33.0); Mean Corpuscular Volume 104.8 fl (81.6-98.3); Mean Platelet Volume 9.9 fl (7.4-10.4); Platelet Count 210 10x3/uL (150-450); RBC Distribution Width 13.9 % (11.5-14.5); Red Blood Cell (RBC) Count 3.32 10x6/uL (3.90-5.03); White Blood Cell (WBC) Count 6.2 10x3/uL (3.5-10.5)
[2022-01-13 11:02] LABS: Anion Gap 20 mmol/L (10-20); BUN (Urea Nitrogen) 36 mg/dL (9.8-20.1); Calc. Creatinine Clearance 0 mL/min (70-130); Calcium 9.9 mg/dL (7.8-10.44); Carbon Dioxide 28 mmol/L (23-31); Chloride 101 mmol/L (98-107); Glucose 134 mg/dL (83-110); Potassium 4.5 mmol/L (3.5-5.1); Sodium 144 mmol/L (136-145)
[2022-01-14 00:47] LABS: SARS-CoV-2 PCR by NAA Not Detected (NotDetected)
== END 2022-01-13 08:48 | disposition home or self-care (01) ==
LOC: LABBT 08:47
PROVIDERS: ATTEND Thoracic Surgery (Cardiothoracic Vascular Surgery)
DX: Z01.818 Encounter for other preprocedural examination (principal); J90 Pleural effusion, not elsewhere classified; J98.11 Atelectasis; Z20.822 Contact with and (suspected) exposure to COVID-19
CPT/HCPCS: 71046; 80048; 85027; U0003; U0005

== ENCOUNTER 2022-01-15 07:47 | Observation (INO) | payer MEDICARE, BC ==
[2022-01-15] MEDS ORDERED: ceFAZolin (BATCH) 2 GM/100 ML BAG ONE (09:25)
[2022-01-15] MEDS ORDERED: fentaNYL Citrate/PF 100 MCG/2 ML SYRINGE ONE (09:36)
[2022-01-15] MEDS ORDERED: Dexamethasone 20 MG/5 ML VIAL ONE (10:01)
[2022-01-15] MEDS ORDERED: ePHEDrine 50 MG/ML VIAL ONE (10:01)
[2022-01-15] MEDS ORDERED: Ondansetron PF 4 MG/2 ML Vial ONE (10:01)
[2022-01-15] MEDS ORDERED: Lidocaine 1% PF 5 ML VIAL ONE (10:01)
[2022-01-15] MEDS ORDERED: PROPOFOL 200 MG/20 ML VIAL ONE (10:01)
[2022-01-15] MEDS ORDERED: Glycopyrrolate 0.2 MG/ML 5 ML SYRINGE ONE (10:01)
[2022-01-15] MEDS ORDERED: Rocuronium Bromide 10 MG/ML (10ML VIAL) ONE (10:01)
[2022-01-15] MEDS ORDERED: PHENYLEPHRINE-NS 100 MCG/ML 10 ML SYRINGE ONE (10:01)
[2022-01-15] MEDS ORDERED: Fentanyl 100 MCG/2 ML VIAL ONE (11:19)
[2022-01-15] MEDS ORDERED: Ketorolac Tromethamine 30 MG/ML VIAL IVP PRN (11:23)
[2022-01-15] MEDS ORDERED: Acetaminophen 325 MG TAB PO PRN (11:23)
[2022-01-15] MEDS ORDERED: Senokot S 8.6-50 MG TAB PO PRN (11:23)
[2022-01-15] MEDS ORDERED: Ondansetron PF 4 MG/2 ML Vial IVP PRN (11:23)
[2022-01-15] MEDS: traMADol HCl 50 MG TAB PO PRN ×2 (13:39→18:08)
[2022-01-15] MEDS ORDERED: Acetaminophen 500 MG TAB PO PRN (20:48)
[2022-01-15] MEDS ORDERED: diphenhydrAMINE 12.5 MG/5 ML UDCUP PO PRN (20:48)
[2022-01-15] MEDS ORDERED: Atorvastatin Calcium 40 MG TAB PO SCH (21:00)
[2022-01-16] MEDS: traMADol HCl 50 MG TAB PO PRN ×3 (05:13→15:07)
[2022-01-16 08:30] VITALS: TEMP 97.2
[2022-01-16 08:42] VITALS: BP 123/58
[2022-01-16] MEDS ORDERED: Levothyroxine Sodium 88 MCG TAB PO SCH (09:00)
[2022-01-16] MEDS ORDERED: Enoxaparin Sodium 30 MG/0.3 ML SYRINGE SC SCH (09:00)
[2022-01-16] MEDS ORDERED: Fludrocortisone Acetate 0.1 MG TAB PO SCH (09:00)
[2022-01-16] MEDS ORDERED: Nebivolol HCl 5 MG TAB PO SCH (09:00)
== END 2022-01-16 17:04 | disposition home or self-care (01) ==
LOC: SDC 07:47 → EDSTATUS 08:15 → MSONC 11:23
PROVIDERS: ADMIT Thoracic Surgery (Cardiothoracic Vascular Surgery); ATTEND Thoracic Surgery (Cardiothoracic Vascular Surgery)
PROC: 0BBN4ZX Excision of Right Pleura, Percutaneous Endoscopic Approach, Diagnostic (ICD-10-PCS; principal; 2022-01-15)
PROC: 0BBT4ZX Excision of Diaphragm, Percutaneous Endoscopic Approach, Diagnostic (ICD-10-PCS; 2022-01-15)
PROC: 0W9930Z Drainage of Right Pleural Cavity with Drainage Device, Percutaneous Approach (ICD-10-PCS; 2022-01-15)
DX: C78.2 Secondary malignant neoplasm of pleura (principal); J91.0 Malignant pleural effusion; I10 Essential (primary) hypertension; E78.5 Hyperlipidemia, unspecified; I70.0 Atherosclerosis of aorta; Z85.3 Personal history of malignant neoplasm of breast; Z92.21 Personal history of antineoplastic chemotherapy; Z92.3 Personal history of irradiation; Z79.890 Hormone replacement therapy; Z79.899 Other long term (current) drug therapy; Z91.040 Latex allergy status; Z91.048 Other nonmedicinal substance allergy status; Z95.2 Presence of prosthetic heart valve; Z90.89 Acquired absence of other organs
CPT/HCPCS: 32556; 32606; 71045; 71046; C1729; 88112; 88305; 88313; 88331; 88341; 88342; 96372; 96374; G0378; J0690; J1100; J1650; J1885; J2405; J2704; J3010; J3490; Q0163

== ENCOUNTER 2022-01-30 12:21 | Outpatient (CLI) | payer MEDICARE, BC | END 2022-01-30 12:22 | disposition home or self-care (01) | LOC: SCSRAD 12:21 | PROVIDERS: ATTEND Thoracic Surgery (Cardiothoracic Vascular Surgery) | DX: J91.0 Malignant pleural effusion (principal) | CPT/HCPCS: 71046 ==

== ENCOUNTER 2022-03-18 10:25 | Outpatient (CLI) | payer MEDICARE, BC | END 2022-03-18 10:26 | disposition home or self-care (01) | LOC: BICRAD 10:25 | PROVIDERS: ATTEND Thoracic Surgery (Cardiothoracic Vascular Surgery) | DX: J91.0 Malignant pleural effusion (principal) | CPT/HCPCS: 71046 ==

== ENCOUNTER 2022-07-20 12:45 | Outpatient (CLI) | payer MEDICARE, BC | END 2022-07-20 12:46 | disposition home or self-care (01) | LOC: BICRAD 12:45 | PROVIDERS: ATTEND Thoracic Surgery (Cardiothoracic Vascular Surgery) | DX: J91.0 Malignant pleural effusion (principal) | CPT/HCPCS: 71046 ==